=== PATIENT | female | born 1940 | race African-American/Black ===

== ENCOUNTER 2017-06-14 10:29 | Day surgery (SDC) | payer OTHER, BC ==
[2017-06-10 15:24] VITALS: BMI 41.9
[2017-06-14] MEDS ORDERED: PROPOFOL 20 ML ONE (11:46)
[2017-06-14 12:19] VITALS: TEMP 98
[2017-06-14 12:49] VITALS: BP 144/89; PULSE 58
== END 2017-06-14 13:10 | disposition home or self-care (01) ==
LOC: FASU-ENDO 10:29
PROVIDERS: ATTEND Internal Medicine Gastroenterology
PROC: 0DJD8ZZ Inspection of Lower Intestinal Tract, Via Natural or Artificial Opening Endoscopic (ICD-10-PCS; principal; 2017-06-14 11:48)
DX: Z12.11 Encounter for screening for malignant neoplasm of colon (principal); Z86.010 Personal history of colon polyps